=== PATIENT | male | born 1960 | race African-American/Black ===

== ENCOUNTER 2020-08-07 12:19 | Day surgery (SDC) | payer BC, OTHER ==
[2020-08-02 11:59] VITALS: BMI 31.0
[2020-08-07] MEDS ORDERED: CEFAZOLIN 2 GM in DEXTROSE 5%-WATER - 50 ML IVPB ONE (14:42)
[2020-08-07] MEDS ORDERED: TRANEXAMIC ACID 1000 MG/10 ML VIAL IVPUSH ONE (14:42)
--- NOTE | 2020-08-07 14:44 | HP ---
History & Physical Update - History History: No Change - Physical Physical: No Change - Assessment Assessment: No Change - Plan Plan: No Change
[2020-08-07] MEDS ORDERED: BUPIVACAINE HCL/PF 0.5% (5 MG/ML) 30 ML VIAL IJ ONE (15:17)
[2020-08-07] MEDS ORDERED: MIDAZOLAM HCL 2 MG/2 ML SINGLE DOSE VIAL ONE ×2 (15:17→15:22)
[2020-08-07] MEDS ORDERED: ceFAZolin SODIUM 1 GM VIAL ONE ×2 (15:39→18:22)
[2020-08-07] MEDS ORDERED: SODIUM CHLORIDE 0.9% P/F 10 ML VIAL IJ ONE (15:41)
[2020-08-07] MEDS ORDERED: VANCOMYCIN 1,000 MG VIAL (RESTRICTED TO ID ONLY) ONE (15:57)
--- NOTE | 2020-08-07 16:22 | PN ---
Progress Note (short form) - Note Progress Note: 60M s/p RIGHT total hip replacement POD #0. -Pain control: per anaesthesia team. -DVT PPx: -Chemical: ASA 81mg PO BID x 6 weeks. -Mechanical: VENUS's, SCD's. -Incentive spirometry q15 min. -PT/OT/Rehab, OOB. -WBAT RLE. -Post-op Ancef x 3 doses. -f/u post-op TOV: 8 hours max. -f/u AM labs. -Diet as tolerated. -Care per medical hospitalist team. -Discharge planning: f/u [facility] [place] Office Wednesday08/20/2020; call for appointment . -Will follow. Gaetano Luis MD (Orthopaedic Surgery).
--- NOTE | 2020-08-07 16:24 | OP ---
Operative Note - Note: Operative Date: 08/07/20 Pre-Operative Diagnosis: Right hip DJD Operation: Right PAULA Implants: [place]. Cup - Trident II-Tritanium, 54mm. Poly - 32mm, symmetric. Stem - Accolade II, #4, 127 deg NSA. Head - Biolox Delta Ceramic, 32mm diameter, standard length Post-Operative Diagnosis: Same as Pre-op Surgeon: Gaetano Luis Anchor Operator: Joel Luis Anesthesiologist/SPEECH PATHOLOGIST ASSISTANT: Kathleen Diehl Anesthesia: Spinal Specimens Removed: Right femoral head Estimated Blood Loss (mls): 150 Fluid Volume Replaced (mls): 1,000 (Crystalloid) Operative Report Dictated: Yes
--- OUTSIDE RECORDS SUMMARY | 2020-08-07 16:28 | XMS ---
:1960 Author Organization [facility] Support Name Relationship Address Phone UE Unavailable Unavailable Unavailable ANGELINA SEYMOUR [address] [place] [id number] Re-disclosure Warning The records that you are about to access may contain information from federally- assisted alcohol or drug abuse programs. If such information is present, then the following federally mandated warning applies: This information has been disclosed to you from records protected by federal confidentiality rules (42 CFR part 2). The federal rules prohibit you from making any further disclosure of this information unless further disclosure is expressly permitted by the written consent of the person to whom it pertains or as otherwise permitted by 42 CFR part 2. A general authorization for the release of medical or other information is NOT sufficient for this purpose. The Federal rules restrict any use of the information to criminally investigate or prosecute any alcohol or drug abuse patient.The records that you are about to access may contain highly sensitive health information, the redisclosure of which is protected by Article 27-F of the [facility] Public Health law. If you continue you may haveaccess to information: Regarding HIV / AIDS; Provided by facilities licensed or operated by the [facility] Office of Mental Health; or Provided by the [facility] Office for People With Developmental Disabilities. If such information is present, then the following [facility] mandated warning applies: This information has been disclosed to you from confidential records which are protected by state law. State law prohibits you from making any further disclosure of this information without the specific written consent of the person to whom it pertains, or as otherwise permitted by law. Any unauthorized further disclosure in violation of state law may result in a fine or fci sentence or both. A general authorization for the release of medical or other information is NOT sufficient authorization for further disclosure. Insurance Providers Payer name Policy type Policy ID Covered Covered libertarian's Policy P clarisa / Coverage libertarian ID relationship to Bains Inf ormation type bains PPO [id number] SP [id number] GHI O [id number] SP [id number] BC PPO [id number] SP [id number] BC INDEMNITY [id number] SP [id number] BC PPO [id number] SP [id number] GHI O [id number] SP [id number] Results ID Date Data Source [id number] 08/03/2020 12:40:00 PM EDT [facility] Name Value Range Interpretation Description Data Sup porting Code Source(s) Document(s ) SARS [facility] coronavirus 2 RNA This lab was ordered by LIZ TANG and reported by [facility]. Procedure
--- NOTE | 2020-08-07 19:22 | PN ---
Progress Note (short form) - Note Progress Note: 60M s/p RIGHT total hip replacement POD #0. -Pain control: per anaesthesia team. -DVT PPx: -Chemical: ASA 81mg PO BID x 6 weeks. -Mechanical: VENUS's, SCD's. -Incentive spirometry q15 min. -PT/OT/Rehab, OOB. -WBAT RLE. -Post-op Ancef x 3 doses. -f/u post-op TOV: 8 hours max. -f/u AM labs. -Diet as tolerated. -Care per medical hospitalist team. -Discharge planning: f/u [facility] [place] Office Wednesday08/20/2020; call for appointment . -Will follow. Gaetano Luis MD (Orthopaedic Surgery).
[2020-08-07] MEDS ORDERED: ONDANSETRON 4 MG/2 ML VIAL IVPUSH PRN (19:28)
[2020-08-07] MEDS ORDERED: oxyCODONE HCL 5 MG TABLET PO PRN ×2 (19:28)
--- NOTE | 2020-08-07 19:34 | OP ---
Date of Operation: 08/07/2020 Surgeon: Gaetano Luis M.D. Director Medicaid: Joel Luis M.D. Pre-Operative Diagnosis: Primary osteoarthritis right hip. Post-Operative Diagnosis: Primary osteoarthritis right hip. Surgical Procedure: Right total hip replacement via Direct Suprior approach. ( [id number]) Anaesthesia: Spinal, block. Position: Left lateral decubitus. Incision: Direct superior. Estimated Blood Loss: 150cc. Intravenous Fluid: 1L crystalloid. Specimens: Right femoral head. Drains: None. Complications: None. Urine output: None. Bacteriology: None. Transfusions: None. Closure: #1 Vicryl, 2-0 Biosyn. Indications: The patient was indicated for a right total hip replacement in order to facilitate improved motion and mobilization, and to prevent the complications associated with a sedentary lifestyle. The patient was identified in the holding area by his armband. A long discussion was held with the patient regarding the risks, benefits and alternatives of the above named procedure. Risks include but are not limited to: pain, bleeding, infection, damage to surrounding structures (including nerves, blood vessels, skin, ligaments, tendons and bone), wound complications, failure of hardware/implants/reduction, need for further surgery, blood clots, myocardial infarction, pulmonary embolism, cerebrovascular insult, anaesthesia complications, compartment syndrome, limb loss, limp, loss of function, and . Benefits as mentioned above. Alternatives include no surgery. All questions were answered. The patient understood and agreed to the procedure. Informed consent was obtained, witnessed and verified. The patients correct operative limb - that is the right lower extremity - was marked, and the patient was taken to the operating room after being seen by the anesthesia and nursing staff. Procedure: The patient was brought into the operating room, placed on the OR table and secured with a safety strap. Consent and the operative site were again verified with the patient and nursing and anaesthesia staff. Anaesthesia, IV antibiotics, and TXA were then administered without complication. A time out was done, led by me the attending surgeon. A pre-operative orthpaedic exam revealed that his right lower extremity was 0.5cm longer than his left lower extremity. The patient was gently turned into the left lateral decubitus position. An axillary roll was placed. A Stulberg hip positioner with well-padded bolsters was used to secure the patient in the lateral decubitus position. The down arm was placed on a well-padded arm board. The up arm was brought across the patients body and placed on 2 pillows. Foam egg crates were placed under the down knee and ankle, and bony prominences were well padded. The operative limb was prepped in standard sterile fashion using betadine prep & scrub, wiped off with alcohol, DuraPrep applied, and then free draped. Time out was again done and the case began. Operation: A standard Direct Superior surgical approach was utilized to access the hip joint. With a #10 blade, a skin incision was taken from the posterior-superior corner of the greater trochanter in a posterior-superior direction. This was approximately 10cm in length. Electrocautery was utilized to carry the deep dissection down to the level of the gluteus osiel fascia. Hemostasis was assured using electrocautery (bipolar and unipolar). The gluteus osiel fascia was incised, and the fibers of gluteus osiel were in line with the trajectory of the incision. This confirmed the accuracy of our planned incision based on palpated landmarks and surface anatomy. A Carias elevator was used to split the distal fibers of gluteus osiel, in line with the fibers, just proximal to their insertion into the iliotibial band. Great care was taken not to incise the iliotibial band. Gluteus osiel fibers were split proximally using the Carias elevator until reaching the apex of the wound. Again, hemostasis was assured. The olivia-capsular fat pad was exposed utilizing curved handle bar retractors. The olivia-capsular fat pad was excised off the inferior border of the gluteus medius muscle belly, exposing the insertion of the hip short external rotator muscle group. The piriformis tendon was identified and freed from adhesions to the capsule using a 90-degree clamp. This tendon was then released from its insertion using electrocautery. The tendon was tagged with a #2 Fiberwire suture and tied to the inferior aspect of the proximal wound apex. The tendon, thus, served as a sling to retract and protect the sciatic nerve. With the piriformis tendon reflected away from its insertion, the hip joint capsule was visualized. Electrocautery was used to perform a capsulotomy and synovial joint fluid was aspirated. Next, the superior leaflet of the capsule was elevated using a Carias elevator to create separation from the underlying labrum and also to create a plane for later placement of a supra-acetabular retractor. The labrum was excised using electrocautery. The hip was then gently dislocated. A standard femoral neck cut was made using an oscillating saw. A large, threaded Steinmann pin was delivered into the femoral head using a drill. The femoral head was then removed. Anterior, inferior, and supra-acetabular retractors were placed to expose the acetabulum. The pulvinar was excised using electrocautery. The acetabular bone bed was significantly sclerotic. Even sized reamers were used to prepare the acetabular bone bed. Healthy blushes of bleeding were observed from the reamed cancellous bone bed. Next, a size 54mm [place] Trident-II Tritanium cup was impacted into position, achieving excellent press-fit. A size 32mm neutral polyethylene liner was then impacted into the cup. Excellent placement of the polyethylene liner, and excellent press fit of the cup were confirmed. Next, attention was turned to femoral preparation. The anterior and supra-acetabular retractors were removed. The cut femoral neck was then exposed using the inferior acetabular retractor around the calcar, and a straight 90-degree retractor to retract gluteus medius. The box-cutter osteotome was used with a mallet to removed bone from the lateral femoral neck. An opening reamer was delivered by hand to find the femoral canal. A lateralizing reamer was used with power to lateralize the proximal entry into the canal, so as to avoid placing the stem into varus. The femoral bone bed was then prepared using broaches with gentle mallet strikes. The tibia was used as a goniometer with which to dial in approximately 5 degrees of stem anteversion. Trial components were assembled and the hip was reduced. The hip was taken through a full range of motion and proved stable throughout this range of motion, including at the extremes of positions of compromised. All trial femoral components were removed. Another 1g of IV Ancef was administered so that the bone bed would be rich with antibiotic at the time of seating of the femoral implant. A [place] Accolade II (127-degree NSA, high offset) #2 stem was then implanted using gentle mallet strikes, diligently matching the prepared degree of stem anteversion. With the stem fully seated, a 32mm diameter, -4mm length ceramic/Biolox femoral head was then selected and implanted. The hip was once again reduced, and taken through a full range of motion. Stability was once again assured. Leg length was equal. The wounds were copiously irrigated, as they had been regularly throughout the case so as to keep the retracted tissues wet, and in order to flush out wound debris. The capsule was primarily repaired using #1 Vicryl sutures in simple interrupted fashion. The tagged piriformis tendon was released and tied to the posterior-lateral corner of the greater trochanter. The remaining wounds were again irrigated. Hemostasis was assured and the wound was closed primarily using #1 Vicryl sutures. A 2-0 Biosyn suture was used to perform a subcuticular wound closure. A sterile, compressive dressing was applied. The sponge and needle counts were correct at the end of the case and the attending was present and scrubbed throughout the case. The patient was then transferred into a supine position and onto the hospital bed. A standard AP-pelvis x-ray was taken, demonstrating good overall alignment with a well reduced, congruent hip. There was no evidence of subsidence, loosening, or olivia-prosthetic fracture. The patient was then was then transferred to the recovery room without incident/complications and in stable condition, having tolerated the procedure well. MD SIMA Woodard/[id number] MTDD
[2020-08-07] MEDS: LACTATED RINGERS SOLUTION 1,000 ML IV SCH (20:02)
--- NOTE | 2020-08-07 20:39 | HP ---
HISTORY OF PRESENT ILLNESS: 60 y/o male with a PMHx significant for Anemia, Asthma, HLD, GERD, OA Right Hip. s/p Right Total Hip Replacement today with Dr. Joel Luis Recent Travel: NO PAST MEDICAL HISTORY: Anemia Asthma Hyperlipidemia GERD Osteoarthritis Right Hip PAST SURGICAL HISTORY: Colonoscopy Appendectomy Social History: Smoking: Never Alcohol: Occasional Drugs: None Lives with his , Independent ADLs Family History: Father- age 76 Mother- Asthma, age 73 Brothers x2- Asthma Sisters x2, alive healthy Allergies No Known Drug Allergies Allergy (Verified 08/02/20 11:47) HOME MEDICATIONS: Home Medications Medication Instructions Recorded Albuterol Sulfate Inhaler - 2 inh PO BID 08/02/20 [Ventolin Hfa Inhaler -] Atorvastatin Ca [Lipitor] 10 mg PO HS 08/02/20 Oxycodone HCl [Oxycodone HCl ER] 30 mg PO TID 08/02/20 Prednisone 20 mg PO ASDIR PRN 08/02/20 Ranitidine HCl 150 mg PO DAILY PRN 08/02/20 REVIEW OF SYSTEMS CONSTITUTIONAL: Absent: fever, chills, diaphoresis, generalized weakness, malaise, loss of appetite, weight change HEENT: Absent: rhinorrhea, nasal congestion, throat pain, throat swelling, difficulty swallowing, mouth swelling, ear pain, eye pain, visual changes CARDIOVASCULAR: Absent: chest pain, syncope, palpitations, irregular heart rate, lightheadedness, peripheral edema RESPIRATORY: Absent: cough, shortness of breath, dyspnea with exertion, orthopnea, wheezing, stridor, hemoptysis GASTROINTESTINAL: Absent: abdominal pain, abdominal distension, nausea, vomiting, diarrhea, constipation, melena, hematochezia GENITOURINARY: Absent: dysuria, frequency, urgency, hesitancy, hematuria, flank pain, genital pain MUSCULOSKELETAL: right hip pain Absent: myalgia, arthralgia, joint swelling, back pain, neck pain SKIN: Absent: rash, itching, pallor HEMATOLOGIC/IMMUNOLOGIC: Absent: easy bleeding, easy bruising, lymphadenopathy, frequent infections ENDOCRINE: Absent: unexplained weight gain, unexplained weight loss, heat intolerance, cold intolerance NEUROLOGIC: Absent: headache, focal weakness or paresthesias, dizziness, unsteady gait, seizure, mental status changes, bladder or bowel incontinence PSYCHIATRIC: Absent: anxiety, depression, suicidal or homicidal ideation, hallucinations. PHYSICAL EXAMINATION Vital Signs - 24 hr 08/07/20 08/07/20 08/07/20 13:31 13:51 19:20 Temperature 98.4 F 98.4 F 97.9 F Pulse Rate 57 L 57 L 65 Respiratory 14 14 14 Rate Blood Pressure 117/56 L 117/56 L 104/64 O2 Sat by Pulse 100 100 100 Oximetry (%) 08/07/20 08/07/20 08/07/20 19:25 19:30 19:45 Temperature Pulse Rate 65 62 62 Respiratory 14 14 14 Rate Blood Pressure 108/53 L 105/61 107/68 O2 Sat by Pulse 100 100 100 Oximetry (%) 08/07/20 08/07/20 19:59 20:01 Temperature 97.9 F Pulse Rate 62 62 Respiratory 14 14 Rate Blood Pressure 112/64 112/64 O2 Sat by Pulse 100 100 Oximetry (%) Pre Op: wbc 6.5 hgb 14.3 hct 43.9 Na 138 K 4.5 Bun 13 Cr 0.90 Glu 92 Intra Op: Ancef 1g x1 EBL 100ml LR 1000ml GENERAL: Awake, alert, and fully oriented, in no acute distress. HEAD: Normal with no signs of trauma. EYES: Pupils equal, round and reactive to light, extraocular movements intact, sclera anicteric, conjunctiva clear. No lid lag. EARS, NOSE, THROAT: Ears normal, nares patent, oropharynx clear without exudates. Dry mucous membranes. NECK: Normal range of motion, supple without lymphadenopathy, JVD, or masses. LUNGS: Breath sounds equal, clear to auscultation bilaterally. No wheezes, and no crackles. No accessory muscle use. HEART: Regular rate and rhythm, normal S1 and S2 without murmur, rub or gallop. ABDOMEN: Soft, nontender, not distended, normoactive bowel sounds, no guarding, no rebound, no masses. No hepatomegaly or splenomegaly. MUSCULOSKELETAL: LROM of RLE. R-Hip tenderness. Normal range of motion at RUE, LUE, LLE joints. No bony deformities. No CVA tenderness. UPPER EXTREMITIES: 2+ pulses, warm, well-perfused. No cyanosis. No clubbing. No peripheral edema. LOWER EXTREMITIES: Icepack, Surgical dressing c/d/i, hemovac drain sanguinous drainage, 2+ pulses, warm, well-perfused. No calf tenderness. No peripheral edema. NEUROLOGICAL: Cranial nerves II-XII intact. Normal speech. Gait not observed. PSYCHIATRIC: Cooperative. Good eye contact. Appropriate mood and affect. SKIN: Warm, dry, normal turgor, no rashes or lesions noted, normal capillary refill. ASSESSMENT/PLAN: 60 y/o male with a PMHx significant for Anemia, Asthma, HLD, GERD, OA Right Hip. s/p Right Total Hip Replacement today with Dr. Joel Luis Right Total Hip Replacement - POD #0 - Periop ABX per surgery - Pain Mgmt per surgery - Asa 325mg BID - Protonix - Bowel Regimen - Incentive Spirometry - Hemovac Drain, monitor output - PT Anemia - Repeat CBC in am - Will transfuse if Hgb < 7.0 Asthma - stable - no acute flare - Albuterol MDI prn HLD - Continue Lipitor - Monitor LFTs GERD - PPI FEN LR@75ml/hr Replete lytes prn Low Na Diet DVT ppx OOB SCDs TEDs Asa 325mg BID Code Status: Full Code Dispo: Requires Inpatient Care Family Medical History Family History: As Documented Visit type - Emergency Visit Emergency Visit: No - New Patient This patient is new to me today: Yes Date on this admission: 08/07/20 - Critical Care Critical Care patient: No
[2020-08-07] MEDS: HYDROmorphone HCL/PF 1 MG/ML VIAL IVPB PRN (21:33)
[2020-08-08] MEDS: HYDROmorphone HCL/PF 1 MG/ML VIAL IVPB PRN (01:26)
[2020-08-08] MEDS: CEFAZOLIN 1 GM/D5W 1 GM/50 ML BAG IVPB SCH ×2 (01:46→09:39)
[2020-08-08] MEDS ORDERED: KETOROLAC TROMETHAMINE 30 MG/1 ML VIAL IVPUSH ONE ×2 (08:48→16:30)
--- NOTE | 2020-08-08 08:50 | PN ---
Progress Note (short form) - Note Progress Note: POD 1, s/p Right PAULA Pt seen and examined. Reports significant pain overnight, not improved with current pain regimen./ Has not been oob. Voiding without issue. Has not had PO. Denies cp/sob, n/v/d. Vital Signs Temp 98.5 F 08/08/20 06:00 Pulse 78 08/08/20 06:00 Resp 18 08/08/20 06:00 BP 145/67 08/08/20 06:00 Pulse Ox 97 08/08/20 06:00 Intake & Output 08/07/20 08/07/20 08/08/20 11:59 23:59 11:59 Intake Total 1250 250 Output Total 100 700 Balance 1150 -450 Weight 210 lb Intake: IV 1100 IVPB 50 Oral 150 200 Output: Urine 700 Void 700 Estimated Blood Loss 100 Other: Voiding Method Urinal Urinal Height 5 ft 9 in Body Mass Index (BMI) 31.0 Weight Measurement Method Standing Scale Gen: awake alert, nad laying in bed Resp: unlabored on RA Ext: right hip with dressing c/d/i not drainage noted, thigh and calf soft, minimal edema noted in upper thigh. 5/5 dorsi/plantarflexion, 5/5 FHL/EHL, silt b/l les palpable dp/pt b/l. CBC, BMP 08/08/20 10:29 08/08/20 10:29 A/P: 60 y/o M w/ PMHx Anemia, Asthma, HLD, GERD, OA Right Hip now s/p elective Right Total Hip Replacement on 08/08. Afebrile, vss labs pending -Pain control: toradol 30 mg iv push ordered for this am with additional dose at 1630, Tylenol 1000mg q6hrs prn, oxycodone 5/10mg q4hrs prn, dilaudid 1mg q3hrs prn btp -DVT PPx: Chemical: ASA 81 mg po BID x 6 weeks, Mechanical: VENUS's, SCD's -Incentive Spirometry -PT/OT/Rehab, OOB -WBAT RLE -f/u am labs -replete electrolytes prn -Home meds as appropriate -Care per medical hospitalist team. d/w attending Dr Luis
--- NOTE | 2020-08-08 09:09 | PN ---
Physical Exam: SUBJECTIVE: Patient seen and examined. Observed walking twice with PT. OBJECTIVE: Vital Signs Period Temp Pulse Resp BP Sys/Rivas Pulse Ox Last 24 Hr 97.5 F-99.1 F 57-78 14-18 104-160/53-77 97-100 GENERAL: The patient is awake, alert, and fully oriented, in no acute distress. LUNGS: Breath sounds equal, clear to auscultation bilaterally HEART: Regular rate and rhythm, S1, S2 ABDOMEN: Soft, nontender, nondistended EXTREMITIES: 2+ pulses, warm, well-perfused, no edema. NEUROLOGICAL: Cranial nerves II through XII grossly intact. Normal speech, steady gait with walker Active Medications Generic Name Dose Route Start Last Admin Trade Name Freq PRN Reason Stop Dose Admin Acetaminophen 1,000 mg 08/08/20 08:54 Tylenol - PO Q6H PRN PAIN LEVEL 1 - 3 Hydromorphone HCl 1 mg 08/07/20 19:30 08/08/20 01:26 Dilaudid - IVPB 1 mg Q3H PRN Administration PAIN LEVEL 7 - 10 Lactated Ringer's 1,000 mls @ 75 mls/hr 08/07/20 19:30 08/07/20 20:02 Lactated Ringers Solution IV 100 mls ASDIR VARGHESE Administration Cefazolin Sodium 1 gm in 50 mls @ 100 mls/hr 08/08/20 02:00 08/08/20 01:46 Ancef 1 Gm Premixed Ivpb - IVPB 08/08/20 10:29 100 mls/hr Q8H VARGHESE Administration Ketorolac Tromethamine 30 mg 08/08/20 16:30 Toradol Injection - IVPUSH 08/08/20 16:31 ONCE ONE Ondansetron HCl 4 mg 08/07/20 19:28 08/08/20 06:00 Zofran Injection IVPUSH 4 mg Q6H PRN Administration NAUSEA AND/OR VOMITING Oxycodone HCl 5 mg 08/07/20 19:28 Roxicodone - PO Q4H PRN PAIN LEVEL 1-5 Oxycodone HCl 10 mg 08/07/20 19:28 08/07/20 21:00 Roxicodone - PO 10 mg Q4H PRN Administration PAIN LEVEL 6-10 Pre op BUN 13 Cr 0.9 Hgb 14.3 Intra op Vanc 1g x 1 Ancef 2g x 1; redosed 1g x 1 EBL <100mL LR x 1L ASSESSMENT/PLAN: 60 year-old male with a PMH significant for asthma and OA s/p right total hip replacement. Right total hip replacement --POD #1 --perioperative antibiotics complete --pain management per surgery --ASA 81mg BID --protonix --bowel regimen --incentive spirometry --Hemovac drain, monitor output FEN Fluids: PO intake adequate Electrolytes: replete as indicated Nutrition: regular diet DVT prophylaxis: OOB, ambulation, SCDs, TEDs, ASA 81mg BID Physical therapy Dispo: continues to require inpatient care. Full code. Visit type - Emergency Visit Emergency Visit: No - New Patient This patient is new to me today: Yes Date on this admission: 08/08/20 - Critical Care Critical Care patient: No
[2020-08-08 10:39] LABS: EOS % 0.2 % (0-4.5); RBC 4.44 M/mm3 (4.00-5.60)
[2020-08-08 10:41] LABS: BASO % 4.7 % (0-2.0); HEMATOCRIT 39.9 % (35.4-49); HEMOGLOBIN 13.5 GM/dl (11.7-16.9); LYMPH % 4.8 % (8-40); MCH 30.4 pg (25.7-33.7); MCHC 33.8 g/dl (32.0-35.9); MEAN CELL VOLUME 89.9 fl (80-96); MEAN PLT VOLUME 7.7 fl (7.5-11.1); MONO % 7.7 % (3.8-10.2); NEUT % 82.6 % (42.8-82.8); PLATELET COUNT 351 K/MM3 (134-434); RDW 14.6 % (11.9-15.9); WHITE BLOOD COUNT 12.3 K/mm3 (4.0-10.8)
[2020-08-08 10:55] LABS: ALBUMIN 3.6 g/dl (3.4-5.0); CALCIUM 8.6 mg/dl (8.5-10); CREATININE 0.9 mg/dl (0.55-1.3); POTASSIUM 3.7 mmol/L (3.5-5.1); TOT PROT 6.5 g/dl (6.4-8.2)
[2020-08-08] MEDS ORDERED: ASPIRIN COATED 81 MG TABLET.EC PO SCH (13:15)
[2020-08-08] MEDS: ASPIRIN COATED 81 MG TABLET.EC PO SCH ×2 (14:04→21:36)
[2020-08-08] MEDS: LACTATED RINGERS SOLUTION 1,000 ML IV SCH (19:50)
[2020-08-08] MEDS: ACETAMINOPHEN 500 MG TABLET (FP) PO PRN (22:16)
[2020-08-09] MEDS: ACETAMINOPHEN 500 MG TABLET (FP) PO PRN (06:19)
--- NOTE | 2020-08-09 08:57 | DS ---
Physical Exam: SUBJECTIVE: Patient seen and examined OBJECTIVE: Vital Signs Period Temp Pulse Resp BP Sys/Rivas Pulse Ox Last 24 Hr 98.8 F-100.1 F 76-88 18-18 107-152/60-77 97-99 PHYSICAL EXAM GENERAL: The patient is awake, alert, and fully oriented, in no acute distress. LUNGS: Breath sounds equal, clear to auscultation bilaterally HEART: Regular rate and rhythm, S1, S2 ABDOMEN: Soft, nontender, nondistended RLE: surgical dressing c/d/i EXTREMITIES: 2+ pulses, warm, well-perfused, no edema. NEUROLOGICAL: Cranial nerves II through XII grossly intact. Normal speech, steady gait with walker LABS Laboratory Results - last 24 hr 08/08/20 08/08/20 10:29 10:29 WBC 12.3 H RBC 4.44 Hgb 13.5 Hct 39.9 MCV 89.9 MCH 30.4 MCHC 33.8 RDW 14.6 Plt Count 351 MPV 7.7 Absolute Neuts (auto) 10.2 Neutrophils % 82.6 Lymphocytes % 4.8 L Monocytes % 7.7 Eosinophils % 0.2 Basophils % 4.7 H Sodium 131 L Potassium 3.7 Chloride 96 L Carbon Dioxide 26 Anion Gap 9 BUN 11.0 Creatinine 0.9 Est GFR (CKD-EPI)AfAm 106.46 Est GFR (CKD-EPI)NonAf 91.86 Random Glucose 118 H Calcium 8.6 Total Bilirubin 1.0 AST 45 H ALT 31 Alkaline Phosphatase 52 Total Protein 6.5 Albumin 3.6 HOSPITAL COURSE: Date of Admission:08/07/20 Date of Discharge: 08/09/20 60 year-old male with a PMH significant for asthma and OA s/p right total hip replacement. Right total hip replacement --POD #2, uncomplicated post operative course --perioperative antibiotics complete --pain well-managed with PO meds --ASA 81mg BID x 6 weeks Minutes to complete discharge: 35 Discharge Summary Problems reviewed: Yes Reason For Visit: UNIL PRIMARY OSTEOARTHRITIS Condition: Improved - Instructions Diet, Activity, Other Instructions: Dr. Luis Discharge Instructions for Hip Replacement Post Operative Instructions Physical activity Physical Therapist will come to your home for the first 5 days. You will be set up with outpatient PT at your first post-operative visit. Use assistive devices for ambulation at all times. Weight bearing as tolerated on your surgical side. Wound care Leave your surgical dressing in place. Do not change the dressing until seen by your surgeon in the office. No baths or showers. Do not submerge your incision. Do not apply any ointments or lotions to your incision. Please call the office if your dressing is soiled/dirty or is falling off. Apply Graduated Compression Stockings (TEDS) to both lower extremities-remove daily for hygiene ONLY. Diet There are no dietary restrictions. Eat healthy, high-fiber foods. Drink 6 to 8 glasses of liquid each day. This will assist in keeping your bowels are regular. Pain management Any pain prescription medication ordered should be taken as prescribed for moderate to severe pain. Do not take additional Tylenol while taking Percocet. Posterior Hip Precautions: Do not cross the leg you had surgery on over your other leg. (Do not cross your legs.)Use an elevated toilet seat. Do not sit on low chairs or beds. Use purple pillow (abductor) when lying in bed. Take Aspirin 81 mg two times a day for a total of 6 weeks to prevent blood clots. Call Dr. Luis for any of the following: Severe pain not relieved by medication Fever of 101 or higher Excessive bleeding or drainage on dressing Inability to urinate If you experience chest pain or shortness of breath, please seek emergency care immediately. Please call the office at to confirm your post-op appointment for the week following surgery. Disposition: HOME - Home Medications Comprehensive Discharge Medication List: Ambulatory Orders Albuterol Sulfate Inhaler - [Ventolin Hfa Inhaler -] 2 inh PO BID 08/02/20 Atorvastatin Ca [Lipitor] 10 mg PO HS 08/02/20 Oxycodone HCl [Oxycodone HCl ER] 30 mg PO TID 08/02/20 Prednisone 20 mg PO ASDIR PRN 08/02/20 Ranitidine HCl 150 mg PO DAILY PRN 08/02/20 This patient is new to me today: No Emergency Visit: No Critical Care patient: No - Discharge Referral Referred to [facility] No
[2020-08-09 09:36] VITALS: BP 119/64; PULSE 86; TEMP 98.6
[2020-08-09] MEDS: ASPIRIN COATED 81 MG TABLET.EC PO SCH (09:42)
--- NOTE | 2020-08-09 09:44 | PN ---
Progress Note (short form) - Note Progress Note: POD 2, s/p Right PAULA Pt seen and examined. Reports improvement in pain with current regimen. Has been oob to chair and with PT. Voiding without issue. Has not had PO. Denies cp/sob, n/v/d. Vital Signs Temp 98.6 F 08/09/20 09:35 Pulse 86 08/09/20 09:35 Resp 17 08/09/20 09:35 BP 119/64 08/09/20 09:35 Pulse Ox 99 08/09/20 09:35 Intake & Output 08/08/20 08/08/20 08/09/20 11:59 23:59 11:59 Intake Total 250 50 675 Output Total 700 400 200 Balance -450 -350 475 Intake: IVPB 50 50 Oral 200 675 Output: Urine 700 400 200 Void 700 400 200 Other: Voiding Method Urinal Urinal Toilet # Unmeasured Voids Void 1 Bowel Movement No No Gen: awake alert, nad laying in bed Resp: unlabored on RA Ext: right hip with dressing c/d/i not drainage noted, thigh and calf soft, minimal edema noted in upper thigh. 5/5 dorsi/plantarflexion, 5/5 FHL/EHL, silt b/l les palpable dp/pt b/l. CBC, BMP 08/08/20 10:29 08/08/20 10:29 A/P: 60 y/o M w/ PMHx Anemia, Asthma, HLD, GERD, OA Right Hip now s/p elective Right Total Hip Replacement on 08/08. low grade fever overnight 100.1, vss discharge instructions reviewed with pt at length, pt verbalized understanding d/w attending Dr Luis
--- NOTE | 2020-08-09 11:47 | PATH ---
Surgical Pathology Report Patient Name: LIZZIE SEYMOUR Med. Rec. #: [id number] /Age/Gender: 1960 (Age: 60) / M Account: [id number] Location: [facility] MED-SURG Taken: 08/07/2020 Received: 08/08/2020 Reported: 08/09/2020 Physicians: Joel Luis M.D. Specimen(s) Received RIGHT FEMORAL HEAD Clinical History Right osteoarthritis Final Diagnosis Bone, femoral head, right, total hip replacement makOpasty: BOne with degenerative joint disease. Electronically Signed By Shannon Junior M.D. Gross Description Received in formalin, labeled "right femoral head," is a 4 cm. femoral head with 1 cm femoral neck The margin of resection is smooth. Focal areas of eburnation are identified measuring up to 2 cm. The remaining articular surface is focally granular. The underlying trabecular bone is yellow and hard. A specialty sales representative section is submitted in one cassette, following decalcification. CELIA/08/08/2020 natasha/08/08/2020
== END 2020-08-09 13:35 | disposition home health service (06) ==
LOC: FASUSAT 12:19 → SUATTDRO 12:19 → EDSTATUS 15:30 → FM/S 19:56 → FASUSAT 08-09 13:35
PROVIDERS: ATTEND Nurse Practitioner Acute Care
PROC: 0SR9029 Replacement of Right Hip Joint with Metal on Polyethylene Synthetic Substitute, Cemented, Open Approach (ICD-10-PCS; principal; 2020-08-07 17:15)
DX: M16.11 Unilateral primary osteoarthritis, right hip (principal)
CPT/HCPCS: 36415; 73502-TC-RT-FY; 80053; 85025; 88305-TC; 88311-TC; 94760; 97010-GP; 97116-GP; 97162-GP